=== PATIENT | male | born 1985 | race American Indian/Alaskan Native ===

== ENCOUNTER 2016-06-09 09:25 | Emergency (ER) | payer SELFPAY ==
[2016-06-09 10:32] LABS: Basophils % (Auto) 0.2 % (0.0-1.8); Eosinophils % (Auto) 0.1 % (0.0-4.3); Hematocrit 47.5 % (35.5-45.6); Hemoglobin 15.6 gm/dl (11.8-15.2); Mean Corpuscular HGB Conc 33 % (32-34); Mean Corpuscular Hemoglobin 30 pg (28-32); Mean Corpuscular Volume 92 fl (84-94); Platelet Count 238 K/mm3 (140-440); Red Blood Count 5.18 M/mm3 (3.65-5.03); Red Cell Distribution Width 12.7 % (13.2-15.2); White Blood Count 15.9 K/mm3 (4.5-11.0)
[2016-06-09 11:12] LABS: Albumin 3.9 g/dL (3.9-5); Alkaline Phosphatase 50 units/L (35-129); BUN/Creatinine Ratio 14.44; Bilirubin,Total 0.7 mg/dL (0.1-1.2); Blood Urea Nitrogen 13 mg/dL (9-20); Calcium 9.1 mg/dL (8.4-10.2); Carbon Dioxide 19 mmol/L (22-30); Glucose 111 mg/dL (75-100); Lipase 11 units/L (13-60)
[2016-06-09 11:13] LABS: Chloride 99.5 mmol/L (98-107); Sodium 133 mmol/L (137-145)
[2016-06-09 11:23] LABS: Bilirubin,Urine NEG (Negative); Blood,Urine SM (Negative); Ketones,Urine 20 mg/dL (Negative); Leukocyte Esterase,Urine NEG (Negative); Mucus,Urine 2+ /HPF; Nitrite,Urine NEG (Negative); Protein,Urine <15 mg/dL mg/dL (Negative); Urobilinogen,Urine < 2.0 mg/dL (<2.0)
[2016-06-09 11:38] LABS: Anion Gap 19 mmol/L
[2016-06-09 11:39] LABS: Alanine Aminotransferase 14 units/L (7-56); Potassium 4.9 mmol/L (3.6-5.0)
[2016-06-09] MEDS ORDERED: NACL 0.9% 1000 ML 1,000 ML IV ONE (20:12)
--- NOTE | 2016-06-09 20:18 | Emergency Department Report ---
HPI - General Chief Complaint: Abdominal Pain Time Seen by Provider: 06/09/16 19:55 - HPI HPI: This is a 30-year-old who presents to the emergency department with complaint of a one-week history of intermittent left lower quadrant abdominal pain. Associated with some mild nausea and today patient had some vomiting but only vomited up some acid. He tried treating himself earlier in the week with Pepto- Bismol and then later with some laxity of but nothing is caused any relief. The patient says he has not had a satiating bowel movement for the past week. He denies any dysuria, discharge, back pain, fever. He denies any past medical history. No recent travel or sick contacts at home. He does not have a primary care doctor. ED Past Medical Hx - Past Medical History Previous Medical History?: No - Surgical History Past Surgical History?: No - Social History Smoking Status: Current Every Day Smoker Substance Use Type: Marijuana - Medications Home Medications: Home Medications Medication Instructions Recorded Confirmed Last Taken Type Ciprofloxacin HCl [Ciprofloxacin 500 mg PO Q12H #10 tab 02/14/15 Unknown Rx TAB] HYDROcodone/ACETAMINOPHEN [Vicodin 1 tab PO Q6HR PRN #20 tablet 02/14/15 Unknown Rx HP 10-300 mg TAB] Docusate Sodium [Colace] 100 mg PO BID PRN #20 capsule 06/10/16 Unknown Rx Magnesium Citrate [Citrate of 300 ml PO NOW #1 bottle 06/10/16 Unknown Rx Magnesia] Ondansetron [Zofran Odt] 4 mg PO Q8HR PRN #10 tab.rapdis 06/10/16 Unknown Rx ED Review of Systems ROS: Stated complaint: ABD PAIN Other details as noted in HPI Comment: All other systems reviewed and negative Constitutional: denies: chills, fever Eyes: denies: eye pain, eye discharge, vision change ENT: denies: ear pain, throat pain Respiratory: denies: cough, shortness of breath, wheezing Cardiovascular: denies: chest pain, palpitations Gastrointestinal: abdominal pain, nausea, vomiting Genitourinary: denies: urgency, dysuria Musculoskeletal: denies: back pain, joint swelling, arthralgia Skin: denies: rash, lesions Neurological: denies: headache, weakness, paresthesias Physical Exam - Physical Exam Vital Signs: Vital Signs 06/09/16 06/09/16 06/09/16 10:03 19:52 19:53 Temperature 98.7 F Pulse Rate 89 82 Respiratory 16 16 16 Rate Blood Pressure 136/81 Blood Pressure 139/73 [Left] O2 Sat by Pulse 100 99 99 Oximetry Physical Exam: GENERAL: The patient is well-developed well-nourished. HEENT: Normocephalic. Atraumatic. Extraocular motions are intact. Patient has moist mucous membranes. Pupils equal reactive to light bilaterally. NECK: Supple. Trachea is midline. CHEST/LUNGS: Clear to auscultation. There is no respiratory distress noted. HEART/CARDIOVASCULAR: Regular. There is no tachycardia. There is no gallop rub or murmur. ABDOMEN: Abdomen is soft, nontender. Unable to reproduce patient's abdominal discomfort to palpation. Patient has normal bowel sounds. There is no abdominal distention. SKIN: Skin is warm and dry. NEURO: The patient is awake, alert, and oriented. The patient is cooperative. The patient has no focal neurologic deficits. The patient has normal speech. MUSCULOSKELETAL: There is no tenderness or deformity. There is no limitation range of motion. There is no evidence of acute injury. ED Course Vital Signs 06/09/16 06/09/16 06/09/16 10:03 19:52 19:53 Temperature 98.7 F Pulse Rate 89 82 Respiratory 16 16 16 Rate Blood Pressure 136/81 Blood Pressure 139/73 [Left] O2 Sat by Pulse 100 99 99 Oximetry ED Medical Decision Making - Lab Data Result diagrams: 06/09/16 10:23 06/09/16 10:23 - Radiology Data Radiology results: report reviewed, image reviewed interpreted by me: Abdominal x-ray shows a moderate amount of stool throughout the colon. There is some nonobstructive nonspecific bowel gas seen. CT of the abdomen and pelvis with IV contrast shows moderate left hydronephrosis and ureters. There is delayed excretion of left kidney consistent with an obstruction but no stone or productive lesion can be identified. Cholelithiasis without evidence of acute cholecystitis. Bowel gas pattern consistent with a mild diffuse ileus. - Medical Decision Making 30-year-old male presents to the emergency department with complaint of a one- week history of some intermittent abdominal pain. However starting last night the pain became very intense and he had some nausea and vomiting. It has since improved without any intervention but is still present at about 4 out of 10. Patient's labs and unremarkable other than a leukocytosis of about 16,000. Belly labs normal. No urinary tract infection or hematuria. Abdominal x-ray shows a moderate amount of stool throughout the colon and nonobstructive nonspecific bowel gas. Due to the patient's complaint of discomfort and the leukocytosis, a CT of the abdomen and pelvis was done. This resulted as showing moderate left-sided hydronephrosis and ureters and concern for a obstructing stone or lesion but none was identified. There is also cholelithiasis without cholecystitis and a bowel gas pattern consistent with a mild diffuse ileus. Patient will be placed on stool softeners and laxity of and we will avoid opiates. He'll be given referrals for primary care and urology. Patient is improved throughout his ED course however he has been encouraged to return to the emergency department with any worsening of symptoms or any acute distress. He understands and agrees the plan. - Differential Diagnosis cholelithiasis, cholecystitis, pancreatitis, bowel obstruction, ileus, coli Critical Care Time: No Critical care attestation.: If time is entered above; I have spent that time in minutes in the direct care of this critically ill patient, excluding procedure time. ED Disposition Clinical Impression: Ileus Abdominal pain Qualifiers: Abdominal location: generalized Qualified Code(s): R10.84 - Generalized abdominal pain Cholelithiasis Qualifiers: Cholelithiasis location: gallbladder Cholecystitis presence: without cholecystitis Biliary obstruction: without biliary obstruction Qualified Code(s) : K80.20 - Calculus of gallbladder without cholecystitis without obstruction Hydronephrosis Qualifiers: Hydronephrosis type: unspecified Qualified Code(s): N13.30 - Unspecified hydronephrosis Disposition: DISCHARGED TO HOME OR SELFCARE Is pt being admited?: No Condition: Stable Instructions: Ileus (ED), Hydronephrosis (ED), Biliary Colic (ED) Additional Instructions: Please follow-up with your primary care doctor in the next few days. I'll also given urine referral for a local urologist, Dr. Doyle, encase you need follow- up regarding her CT findings of hydronephrosis. Increase your oral rehydration. Return to the emergency department with any worsening of your symptoms or any acute distress. Prescriptions: Docusate Sodium [Colace] 100 mg PO BID PRN #20 capsule PRN Reason: Constipation Magnesium Citrate [Citrate of Magnesia] 300 ml PO NOW #1 bottle Ondansetron [Zofran Odt] 4 mg PO Q8HR PRN #10 tab.rapdis PRN Reason: Nausea Referrals: PRIMARY CARE,MD [Primary Care Provider] - 3-5 Days GALLO JUNG MD [Staff Physician] - 3-5 Days SHANIKA DOYLE MD [Staff Physician] - 3-5 Days [facility] [Outside] - 3-5 Days
--- NOTE | 2016-06-09 23:29 | XRay Report ---
FINAL REPORT EXAM: XR ABDOMEN 2V HISTORY: Abd pain TECHNIQUE: Supine and upright abdomen PRIORS: None. FINDINGS: Moderate amount of stool and gas present within the colon. No evidence of colonic or small bowel dilatation. No signs of free air. No abnormal calcifications are identified. IMPRESSION: Nonobstructive bowel gas pattern. No acute abnormality seen.
[2016-06-09] MEDS ORDERED: NACL ONE (23:37)
--- NOTE | 2016-06-10 01:21 | Cat Scan Report ---
FINAL REPORT EXAM: CT ABDOMEN PELVIS W CON HISTORY: abd pain TECHNIQUE: Helical CT scan through the abdomen and pelvis during bolus injection of iodinated contrast. Images are reconstructed in the sagittal and coronal planes. Oral contrast was not given. PRIORS: None. FINDINGS: The lung bases are clear. There is moderate left hydronephrosis and ureterectasis. The left ureter is dilated throughout. There is delayed excretion of the left kidney. A stone or obstructing lesion are not identified. The right kidney and collecting system appear normal. There are phleboliths in the right true pelvis. The liver, pancreas, spleen and adrenal glands appear normal. There are multiple stones in an otherwise normal-appearing gallbladder. The pelvic organs appear grossly normal. The stomach appears grossly within normal limits. Small bowel and colon are diffusely mildly fluid distended. A normal-appearing appendix is identified. The abdominal aorta has a normal diameter. The bones and subcutaneous soft tissues are unremarkable for age. IMPRESSION: 1. Moderate left hydronephrosis and ureterectasis throughout. Delayed excretion of the left kidney consistent with obstruction. A stone or obstructing lesion are not identified. 2. Cholelithiasis without evidence of acute cholecystitis 3. Bowel-gas pattern is consistent with a mild diffuse ileus
[2016-06-10 02:51] VITALS: BP 121/78
== END 2016-06-10 02:53 | disposition home or self-care (01) ==
LOC: ED 09:25
DX: K56.7 Ileus, unspecified (principal); K80.20 Calculus of gallbladder without cholecystitis without obstruction; N13.30 Unspecified hydronephrosis; F17.200 Nicotine dependence, unspecified, uncomplicated; F12.10 Cannabis abuse, uncomplicated
CPT/HCPCS: 36415; 74020; 74177; 80053; 81001; 83690; 85025; 96360; 99284; J7030; Q9967

== ENCOUNTER 2018-09-18 16:07 | Emergency (ER) | payer OTHER ==
[2018-09-18 16:19] VITALS: BP 97/60
--- NOTE | 2018-09-18 16:19 | Emergency Department Report ---
Suture/Staple Removal - [facility] Chief Complaint: Laceration/Recheck/Suture Stated Complaint: TO HAVE MADONNA REMOVED Time Seen by Provider: 09/18/18 16:11 When Sutures or Libby Placed: 5-7 Days Ago Wound Location: right sided head ED Review of Systems ROS: Stated complaint: TO HAVE MADONNA REMOVED Other details as noted in HPI Constitutional: denies: chills, fever Eyes: denies: eye pain, eye discharge, vision change ENT: denies: ear pain, throat pain Respiratory: denies: cough, shortness of breath, wheezing Cardiovascular: denies: chest pain, palpitations Endocrine: no symptoms reported Gastrointestinal: denies: abdominal pain, nausea, diarrhea Genitourinary: denies: urgency, dysuria Musculoskeletal: denies: back pain, joint swelling, arthralgia Skin: denies: rash, lesions Neurological: denies: headache, weakness, paresthesias Psychiatric: denies: anxiety, depression Hematological/Lymphatic: denies: easy bleeding, easy bruising ED Past Medical Hx - Past Medical History Previous Medical History?: No - Surgical History Past Surgical History?: No - Social History Smoking Status: Current Every Day Smoker Substance Use Type: Marijuana - Medications Home Medications: Home Medications Medication Instructions Recorded Confirmed Last Taken Type Ciprofloxacin HCl [Ciprofloxacin 500 mg PO Q12H #10 tab 02/14/15 Unknown Rx TAB] HYDROcodone/ACETAMINOPHEN [Vicodin 1 tab PO Q6HR PRN #20 tablet 02/14/15 Unknown Rx HP 10-300 mg TAB] Docusate Sodium [Colace] 100 mg PO BID PRN #20 capsule 06/10/16 Unknown Rx Magnesium Citrate [Citrate of 300 ml PO NOW #1 bottle 06/10/16 Unknown Rx Magnesia] Ondansetron [Zofran Odt] 4 mg PO Q8HR PRN #10 tab.rapdis 06/10/16 Unknown Rx Suture Removal Exam - Exam General: Vital signs noted. No distress. Alert and acting appropriately. Wound: No Pathologic Erythema, No Tenderness, No Drainage, No Pus, No Wound Dehiscence Other Systems: All other systems reviewed and are unremarkable. ED Course - Reevaluation(s) Reevaluation #1: 09/18/18 16:17 Patient is speaking in full sentences with no signs of distress noted. ED Recheck MDM - Medical Decision Making Total of 3 madonna has been removed. Patient tolerated well. Patient was instructed to Follow-up with a primary care doctor in 3-5 days or if symptoms worsen and continue return to emergency room as soon as possible. At time of discharge, the patient does not seem toxic or ill in appearance. No acute signs of distress noted. Patient agrees to discharge treatment plan of care. No further questions noted by the patient. Critical care attestation.: If time is entered above; I have spent that time in minutes in the direct care of this critically ill patient, excluding procedure time. ED Disposition Clinical Impression: Removal of staple Disposition: DC-01 TO HOME OR SELFCARE Is pt being admited?: No Does the pt Need Aspirin: No Condition: Stable Additional Instructions: Follow-up with a primary care doctor in 3-5 days or if symptoms worsen and continue return to emergency room as soon as possible. Referrals: PRIMARY CAREMD [Referring] - 3-5 Days LANRE ARCE MD [Staff Physician] - 3-5 Days [facility] [Outside] - 3-5 Days [facility] [Outside] - 3-5 Days
== END 2018-09-18 16:40 | disposition home or self-care (01) ==
LOC: ED 16:07
DX: S01.91XD Laceration without foreign body of unspecified part of head, subsequent encounter (principal); F17.200 Nicotine dependence, unspecified, uncomplicated; F12.10 Cannabis abuse, uncomplicated; Z79.899 Other long term (current) drug therapy; W45.8XXD Other foreign body or object entering through skin, subsequent encounter

== ENCOUNTER 2018-11-01 11:33 | Emergency (ER) | payer OTHER ==
[2018-11-01 12:03] VITALS: BP 120/70
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
== END 2018-11-01 14:43 | disposition home or self-care (01) ==
LOC: ED 11:33
DX: S80.02XA Contusion of left knee, initial encounter (principal); S80.01XA Contusion of right knee, initial encounter; V49.9XXA Car occupant (driver) (passenger) injured in unspecified traffic accident, initial encounter; Y93.89 Activity, other specified; Y92.410 Unspecified street and highway as the place of occurrence of the external cause; Y99.8 Other external cause status
CPT/HCPCS: 99282